=== PATIENT | female | born 1970 | race Caucasian/White ===

== ENCOUNTER 2016-11-14 05:17 | Day surgery (SDC) | payer OTHER ==
[~2016-11-14] VITALS: Ht 170.2 cm; Wt 113.1 kg
[~2016-11-14 05:17] MED LIST: BIOT50005 PO; PAXI20TA PO; ZOCO40TA PO
[2016-11-14] MEDS ORDERED: METOPROLOL TARTRATE 25 MG TAB PO PRN (05:45)
[2016-11-14] MEDS ORDERED: SCOPOLAMINE 1.5 MG PATCH T-DERMAL SCH (05:45)
[2016-11-14] MEDS ORDERED: POVIDONE IODINE 5% (ANTISEPSIS KIT) 4 APPLICATIONS EACH NARE PRN (05:45)
[2016-11-14] MEDS ORDERED: INSULIN HUMAN REGULAR 1,000 UNITS/10 ML VIAL SQ PRN (05:45)
[2016-11-14] MEDS ORDERED: ONDANSETRON HCL 4 MG/2 ML VIAL IV PUSH SCH (05:45)
[2016-11-14] MEDS ORDERED: LACTATED RINGER'S 1000 ML IV PRN (05:45)
[2016-11-14] MEDS ORDERED: metroNIDAZOLE 500 MG INJ 100 ML IV SCH (05:45)
[2016-11-14] MEDS ORDERED: CHLORHEXIDINE GLUCONATE 2 % 1 PACK (2 CLOTHS) TOPICAL PRN (05:45)
[2016-11-14] MEDS ORDERED: ceFAZolin 2 GM PREMIX 50 ML IV SCH (05:45)
[2016-11-14] MEDS ORDERED: ACETAMINOPHEN 1000 MG/100 ML VIAL IV SCH (05:45)
[2016-11-14] MEDS ORDERED: SODIUM CHLORID 0.9% 500 ML IV PRN (05:45)
[2016-11-14] MEDS ORDERED: APREPITANT 40 MG CAP PO SCH (05:45)
[2016-11-14 06:10] VITALS: BP 113/70; PULSE 80; RESP 20; TEMP 99; O2SAT 94
[2016-11-14] MEDS ORDERED: BUPIVACAINE/EPINEPHRINE 0.25% 50 ML VIAL ONE (06:42)
[2016-11-14] MEDS ORDERED: FAMOTIDINE 20 MG/2 ML VIAL ONE (07:02)
[2016-11-14] MEDS ORDERED: MIDAZOLAM HCL 2 MG/2 ML VIAL ONE (07:03)
[2016-11-14] MEDS ORDERED: DEXAMETHASONE SOD PHOS 4 MG/ML VIAL ONE (07:03)
[2016-11-14] MEDS ORDERED: 1/2 NS + KCL 20 MEQ INJ 1,000 ML IV SCH ×2 (09:11)
[2016-11-14] MEDS ORDERED: ONDANSETRON HCL 4 MG/2 ML VIAL IV PRN (09:15)
[2016-11-14] MEDS ORDERED: ACETAMINOPHEN 325MG/HYDROcodone 7.5MG/15ML UDC PO PRN ×2 (09:15)
[2016-11-14] MEDS ORDERED: diphenhydrAMINE HCL 50 MG/ML VIAL IV PRN (09:15)
[2016-11-14] MEDS ORDERED: diphenhydrAMINE HCL ELIXIR 12.5 MG/5 ML CUP PO PRN (09:15)
[2016-11-14] MEDS ORDERED: SODIUM CHLORIDE 0.9% FLUSH 10 ML FLUSH IV FLUSH PRN (09:15)
[2016-11-14] MEDS ORDERED: ENALAPRILAT 1.25 MG/ML VIAL IV PUSH PRN (09:15)
[2016-11-14] MEDS ORDERED: HYDROmorphone HCL PF 2 MG/ML VIAL IV PUSH PRN (09:30)
[2016-11-14] MEDS ORDERED: KETOROLAC TROMETHAMINE 60 MG/2 ML (IM) VIAL IM ONE (09:56)
[2016-11-14] MEDS ORDERED: LACTATED RINGER'S 1000 ML INJ 2,000 ML IV ONE (09:56)
[2016-11-14] MEDS ORDERED: ONDANSETRON HCL 4 MG/2 ML VIAL IV PUSH ONE (09:56)
[2016-11-14] MEDS ORDERED: ePHEDrine/NS 25 MG/5 ML SYR IV ONE (09:56)
[2016-11-14] MEDS ORDERED: NEOSTIGMINE 3 MG/3 ML SYR IV ONE (09:56)
[2016-11-14] MEDS ORDERED: PROPOFOL 200 MG/20 ML AMP IV ONE (09:56)
[2016-11-14] MEDS ORDERED: METOCLOPRAMIDE HCL 10 MG/2 ML VIAL IV PUSH SCH (10:00)
[2016-11-14] MEDS ORDERED: Post-op Orders (for Pharmacy) MISC OTHER ONE (10:14)
[2016-11-14] MEDS ORDERED: fentaNYL CITRATE 250 MCG/5 ML AMP ONE (10:18)
[2016-11-14] MEDS ORDERED: DO NOT ADM ANY ANTICOAGULANT DRUGS PRN (10:45)
[2016-11-14] MEDS ORDERED: DICLOFENAC SODIUM 37.5 MG/ML VIAL IV PUSH PRN (11:00)
--- NOTE | 2016-11-14 11:14 | MP ---
cc: ESTRELLA HERNANDEZ DATE OF SURGERY 11/14/2016 PREOPERATIVE DIAGNOSIS Severe obesity with a BMI of 39 complicated by hyperlipidemia. POSTOPERATIVE DIAGNOSIS Severe obesity with a BMI of 39 complicated by hyperlipidemia, as well as paraesophageal hernia. PROCEDURE Laparoscopic vertical sleeve gastrectomy over a 36-Cymro VISIGI bougie, laparoscopic paraesophageal hernia repair. SURGEON Estrella Hernandez MD AUTOMOTIVE MACHINIST APPRENTICE Juan Almeida MD. Dr. Almeida's assistance was necessary for this procedure due to the complexity of the operation. Dr. Almeida was necessary for manipulation and exposure during the procedure. The group fitness assistant department head provided by [employer] was used to run the camera ANESTHESIA General endotracheal anesthesia ESTIMATED BLOOD LOSS Less than 50 cc FINDINGS Moderate size paraesophageal hernia, fatty liver. SPECIMENS None COMPLICATIONS None OPERATION The patient was brought to the operating room and placed on the operating table in supine position. Bilateral sequential inflation devices were placed on the lower extremities. General anesthesia instituted. A Monae catheter was placed. Antibiotics initiated. The abdomen was prepped and draped sterilely. A point 15 cm distal to the xiphoid in the midline was anesthetized with 0.25% Marcaine with epinephrine. A skin incision was made. A 5 mm Optiview port placed under direct vision, a pneumoperitoneum created. Under direct vision, two 5 mm ports were placed in the left upper quadrant, a 15 mm port was placed in the right upper quadrant, a 5 mm port placed in the right upper quadrant. An additional 5 mm port was placed in the epigastrium, as well as his left upper quadrant. The abdominal cavity was inspected. Findings were as above. Attention was focused in the upper abdomen and patient was placed in reverse Trendelenburg position. The left lobe of the liver was first dissected off of the stomach using blunt dissection. The carisa-flex retractor was then placed. Using meticulous tedious dissection, the omentum was dissected off of the stomach. The stomach was visualized. The angle of His was tightly adherent to the abdominal wall. This was taken down using care. The patient was noted to have a paraesophageal hernia. The crura of the diaphragm was dissected anteriorly and posteriorly retracting the GE junction into the abdominal cavity. The hernia sac was excised. A Annette drain was utilized for manipulation of the esophagus during this dissection. The crura of the diaphragm was approximated inferiorly with two interrupted [id number] stitches. The crura came together without tension. Once the stomach was mobilized, the vasculature along the greater curvature was then . Posterior ligamentous attachments . This was done a distance 5 cm proximal to the pylorus and taken towards the angle of His. A 36 Cymro Bougie was placed into the stomach. Division of the stomach started 5 cm proximal to the pylorus. This was performed using an echelon flex stapler. The first firing was with a black load, followed by four firings of the green load. All staple loads were reinforced with Seamguard. A Bougie was placed into the antrum and then firing the stapler. A distance of 2 cm was left on the angle incisura and the staple line. A distance of 2 cm was left from the GE junction and staple line. The Bougie was then removed. An OG tube was placed. Methylene blue instilled with fluid in the pylorus. There was no evidence of extravasation. The gastrocolic ligament was then sutured to the posterior leaflet of the SeamGuard using a 2-0 Vicryl suture in a running manner. The operative field was inspected, hemostasis was present. The Carisa-Flex retractor removed. Excised stomach removed from the peritoneal cavity in an Endopouch through the 15 mm port site. After this, the fascia at the 15 mm port side was approximated with 0 Vicryl using the Neel-Norman fascial closure device. The pneumoperitoneum was then released. All ports removed. All skin incisions closed with 4-0 Monocryl. The abdominal wall was cleaned and a sterile dressing placed. The patient was awakened and taken to the Recovery Room stable. MD NEHAL Hernandez/SONYA /9:45 AM /10:56 AM DAR
[2016-11-14] MEDS ORDERED: RESP: ALBUTEROL 2.5 MG/3 ML NEB (SCH) INH (12:00)
[2016-11-14] MEDS ORDERED: ENOXAPARIN SODIUM 40 MG/0.4 ML SYRINGE SQ SCH (14:00)
[2016-11-14 15:15] VITALS: BP 143/81; PULSE 67; RESP 16; TEMP 97.8; O2SAT 95
[2016-11-14] MEDS ORDERED: SODIUM CHLORIDE 0.9% FLUSH 10 ML FLUSH IV FLUSH SCH (21:00)
[2016-11-15] MEDS ORDERED: PANTOPRAZOLE SOD 40 MG DELAYED RELEASE TAB PO SCH (09:00)
[2016-11-15] MEDS ORDERED: METOCLOPRAMIDE HCL 10 MG/2 ML VIAL IV PUSH PRN (10:00)
== END 2016-11-14 15:06 | disposition home or self-care (01) ==
LOC: HSDC 05:17
PROVIDERS: ATTEND Surgery
DX: E66.01 Morbid (severe) obesity due to excess calories (principal); K44.9 Diaphragmatic hernia without obstruction or gangrene; E78.5 Hyperlipidemia, unspecified; K76.0 Fatty (change of) liver, not elsewhere classified; F32.9 Major depressive disorder, single episode, unspecified; Z68.39 Body mass index [BMI] 39.0-39.9, adult
CPT/HCPCS: 43281; 43775; J0131; J0690; J1100; J1650; J1885; J2250; J2405; J2710; J2765; J3010; J7120; J8501